=== PATIENT | male | born 1985 | race African-American/Black ===

== ENCOUNTER 2016-12-26 16:24 | Emergency (ER) | payer SELFPAY ==
[2016-12-26 16:30] VITALS: BP 145/100; BMI 26.6
[2016-12-26] MEDS ORDERED: DUONEB 0.5 MG/3 MG NEB ONE (17:22)
--- NOTE | 2016-12-26 17:22 | DR.GENAD ---
HPI - PCP Primary Care Physician: NFD - Complaint/Symptoms Chief Complaint Doctors Comments: Patient admits to cough and congestion for couple days OTC meidcation is not helping. Denies history of asthma. Chief Complaint:: PATIENT STATED HE THINKS HE HAS A CHEST COLD FOR A COUPLE OF DAYS. HE STATED HE HAS BEEN COUGHING AND STUFF HAS BEEN COMING UP. - Source History Provided: Patient - Mode of Arrival Mode of Arrival: Ambulatory - Timing Onset of Chief Complaint: 12/24/16 PMH - PMH Past Medical History: No Past Surgical History: Yes Surgical History: Unknown - Family History History of Family Medical Conditions: No - Social History Does patient currently use any type of tobacco product: No Have you used tobacco products in the last 12 months: No Type of Tobacco Use: None Does any household member use tobacco: No Alcohol Use: Rarely Do you use any recreational Drugs:: No Lives With: Family Lives Where: Home - infectious screening In the last 2 months have you had wt loss of >10#?: NO Have you had fever, night sweats or hemotysis?: No Have you traveled outside the country in the last 6 months?: No Isolation: Standard ROS - Review of Systems Constitutional: No Symptoms Reported Eyes: No Symptoms Reported ENTM: No Symptoms Reported Respiratoy: Non-Productive Cough Cardiovascular: No Symptoms Reported Gastrointestinal/Abdominal: No Symptoms Reported Genitourinary: No Symptoms Reported Neurological: No Symptoms Reported Musculoskeletal: No Symptoms Reported Integumentary: No Symptoms Reported Hematologic/Lymphatic: No Symptoms Reported Endocrine: No Symptoms Reported Psychiatric: No Symptoms Reported All Other Systems: Reviewed and Negative PE - Vital Signs Vitals: Temperature 98.8 F Pulse Rate 78 Respiratory Rate 18 Blood Pressure 145/100 O2 Sat by Pulse Oximetry 99 - General Limitations: No Limitations General Appearance: Alert, In No Apparent Distress - Head Head Exam: Normal Inspection, Atraumatic - Eyes Eye exam: Normal Appearance, PERRL, EOMI - ENT ENT Exam: Normal Exam External Ear Exam: Normal External Inspection TM/Canal Exam: Bilateral Normal Nose Exam: Normal Nose Exam Mouth Exam: Normal Inspection Throat Exam: Normal Inspection - Neck Neck Exam: Normal Inspection - Chest Chest Inspection: Normal Inspection - Respiratory Respiratory Exam: Normal Lung Sounds Bilat Respiratory Exam: Bilateral Clear to Auscultation - Cardiovascular Cardiovascular Exam: Regular Rate, Normal Rhythm - Abdominal Exam Abdominal Exam: Normal Inspection, Normal Bowel Sounds - Back Back Exam: Normal Inspection, Full ROM - Neurologic Neurological Exam: Alert, Oriented X3, CN II-XII Intact - Psychiatric Psychiatric Exam: Normal Affect - Skin Skin Exam: Warm, Dry Course - Treatment Treatment: Neb treatment - Reevaluation 1st: Improved ROR - XRAY XRAY Interpreted by: Radiologist (No acute cardiopulmonary disease) - Diagnosis Discharge Problem: Reactive airway disease Qualifiers: Asthma severity: mild intermittent Asthma complication type: with acute exacerbation Qualified Code(s): J45.21 - Mild intermittent asthma with (acute) exacerbation - Discharge Plan Condition: Stable - Follow ups/Referrals Follow ups/Referrals: NFD,None [Primary Care Provider] - 3 days - Instructions
[2016-12-26] MEDS ORDERED: DUONEB 0.5 MG/3 MG ONE (17:31)
--- NOTE | 2016-12-26 17:52 | RAD ---
HISTORY: Chest pain Study: Single view chest. Comparison: None. Findings: The trachea is midline. The cardiac silhouette is unremarkable. The lungs are clear without focal infiltrate or effusion. The bony thorax is unremarkable. IMPRESSION: 1. No acute cardiopulmonary disease. Reported By:
== END 2016-12-26 18:25 | disposition home or self-care (01) ==
LOC: ER 16:37
DX: J45.21 Mild intermittent asthma with (acute) exacerbation (principal)
CPT/HCPCS: 71010; 94640; 99282; J7620

== ENCOUNTER 2017-09-21 21:59 | Emergency (ER) | payer SELFPAY ==
[2017-09-21 22:05] VITALS: BP 134/70; BMI 25.7
== END 2017-09-21 22:22 | disposition left against medical advice (07) | DRG 918 ==
LOC: ER 21:59
DX: T65.891A Toxic effect of other specified substances, accidental (unintentional), initial encounter (principal); J02.9 Acute pharyngitis, unspecified; Y92.89 Other specified places as the place of occurrence of the external cause
CPT/HCPCS: 99281